=== PATIENT | female | born 1985 | race Two or more races ===

== ENCOUNTER → 2020-12-05 | Outpatient (CLI) | payer OTHER ==
[~2020-12-05] MED LIST: FOLIC ACID0.4 MG
== END | disposition home or self-care (01) ==
LOC: PRENATAL 14:28
PROVIDERS: ATTEND Obstetrics & Gynecology Maternal & Fetal Medicine
DX: O35.0XX1 Maternal care for (suspected) central nervous system malformation in fetus, fetus 1 (principal); O35.3XX1 Maternal care for (suspected) damage to fetus from viral disease in mother, fetus 1; O98.512 Other viral diseases complicating pregnancy, second trimester; O99.891 Other specified diseases and conditions complicating pregnancy; O34.12 Maternal care for benign tumor of corpus uteri, second trimester; Z36.89 Encounter for other specified antenatal screening; Z3A.20 20 weeks gestation of pregnancy

== ENCOUNTER 2021-02-12 13:15 | Outpatient (CLI) | payer OTHER | END 2021-02-12 13:57 | disposition home or self-care (01) | LOC: PRENATAL 13:15 | PROVIDERS: ATTEND Obstetrics & Gynecology Maternal & Fetal Medicine | DX: O26.843 Uterine size-date discrepancy, third trimester (principal); O99.891 Other specified diseases and conditions complicating pregnancy; Z36.89 Encounter for other specified antenatal screening; Z3A.30 30 weeks gestation of pregnancy ==